=== PATIENT | male | born 1975 | race Caucasian/White ===

== ENCOUNTER 2016-09-18 10:10 | Inpatient (IN) | payer OTHER ==
[2016-09-18 11:03] VITALS: BMI 26.6
--- NOTE | 2016-09-18 12:54 | HP ---
CIWA Score - CIWA Score Nausea/Vomitin-No Nausea/No Vomiting Muscle Tremors: 4-Moderate,w/Arms Extend Anxiety: 3 Agitation: 4-Moderately Restless Paroxysmal Sweats: 3 Orientation: 0-Oriented Tacttile Disturbances: 0-None Auditory Disturbances: 0-None Visual Disturbances: 0-None Headache: 1-Very Mild CIWA-Ar Total Score: 15 Admission ROS BHS - HPI Chief Complaint: I am here to detox. Allergies/Adverse Reactions: Allergies Allergy/AdvReac Type Severity Reaction Status Date / Time No Known Allergies Allergy Verified 09/18/16 11:29 History of Present Illness: pt is a 40yr old male with a history of alcohol dependence seeking detox for treatment. Exam Limitations: No Limitations - Ebola screening Have you traveled outside of the country in the last 21 days: No Have you had contact with anyone from an Ebola affected area: No Have you been sick,other than usual withdrawal symptoms: No Do you have a fever: No - Review of Systems Constitutional: Chills, Diaphoresis, Loss of Appetite, Night Sweats EENT: reports: No Symptoms Reported Respiratory: reports: No Symptoms reported Cardiac: reports: No Symptoms Reported GI: reports: No Symptoms Reported, Poor Appetite, Poor Fluid Intake : reports: No Symptoms Reported Musculoskeletal: reports: No Symptoms Reported, Back Pain, Joint Pain Integumentary: reports: Flushing, Sweating Neuro: reports: Headache, Tingling, Tremors Endocrine: reports: Excessive Sweating, Flushing, Intolerance to Cold, Intolerance to Heat Hematology: reports: No Symptoms Reported Psychiatric: reports: No Sypmtoms Reported, Judgement Intact, Orientated x3, Agitated, Anxious Other Systems: Reviewed and Negative Patient History - Patient Medical History Hx Anemia: No Hx Asthma: No Hx Chronic Obstructive Pulmonary Disease (COPD): No Hx Cancer: No Hx Cardiac Disorders: No Hx Congestive Heart Failure: No Hx Hypertension: No Hx Hypercholesterolemia: No Hx Pacemaker: No HX Cerebrovascular Accident: No Hx Seizures: No Hx Dementia: No Hx Diabetes: No Hx Gastrointestinal Disorders: No Hx Liver Disease: No Hx Genitourinary Disorders: No Hx Sexually Transmitted Disorders: No Hx Renal Disease (ESRD): No Hx Thyroid Disease: No Hx Human Immunodeficiency Virus (HIV): No (negative) Hx Hepatitis C: No (negative) Hx Depression: Yes Hx Suicide Attempt: No Hx Bipolar Disorder: Yes Hx Schizophrenia: No Other Medical History: panic attack - Patient Surgical History Past Surgical History: No - PPD History Previous Implant?: Yes Documented Results: Negative w/o proof Implanted On Prior R Admission?: No PPD to be Administered?: Yes - Reproductive History Patient is a Female of Child Bearing Age (11 -55 yrs old): No - Smoking Cessation Smoking history: Current every day smoker Have you smoked in the past 12 months: Yes Aproximately how many cigarettes per day: 10 Hx Chewing Tobacco Use: No Initiated information on smoking cessation: Yes 'Breaking Loose' booklet given: 09/18/16 - Substance & Tx. History Hx Alcohol Use: Yes Hx Substance Use: Yes Substance Use Type: Alcohol, Cocaine Hx Substance Use Treatment: Yes - Substances Abused Alcohol Route: Oral Frequency: Daily Amount used: 1-2 PINT VODKA OR MYRA/ 6PK BEERS Age of first use: 15 Date of Last Use: 09/17/16 Cocaine Route: Smoking Frequency: Daily Amount used: 5 BAGS Age of first use: 15 Date of Last Use: 09/17/16 Family Disease History - Family Disease History Family Disease History: Diabetes: Father, [place]: Mother Admission Physical Exam S - Vital Signs Vital Signs: Vital Signs - 24 hr 09/18/16 11:00 Temperature 96.5 F L Pulse Rate 78 Respiratory 20 Rate Blood Pressure 102/76 - Physical General Appearance: Yes: Appropriately Dressed, Moderate Distress, Tremorous, Irritable, Sweating, Anxious HEENTM: Yes: Normal Voice Respiratory: Yes: Lungs Clear, Normal Breath Sounds, No Respiratory Distress Neck: Yes: No masses,lesions,Nodules Breast: Yes: Within Normal Limits Cardiology: Yes: Regular Rhythm, Regular Rate, S1, S2 Abdominal: Yes: Normal Bowel Sounds, Non Tender Genitourinary: Yes: Within Normal Limits Back: Yes: Normal Inspection Musculoskeletal: Yes: Back pain Extremities: Yes: Normal Capillary Refill, Normal Inspection, Tremors Neurological: Yes: Fully Oriented, Alert, Normal Response Integumentary: Yes: Normal Color, Diaphoresis Lymphatic: Yes: Within Normal Limits - Diagnostic (1) Alcohol dependence with uncomplicated withdrawal Current Visit: Yes Status: Chronic (2) Cocaine dependence Current Visit: Yes Status: Chronic Qualifiers: Substance use status: uncomplicated Qualified Code(s): F14.20 - Cocaine dependence, uncomplicated (3) Nicotine dependence Current Visit: Yes Status: Chronic Qualifiers: Nicotine product type: cigarettes Substance use status: uncomplicated Qualified Code(s): F17.210 - Nicotine dependence, cigarettes, uncomplicated (4) Chronic back pain Current Visit: Yes Status: Chronic Qualifiers: Back pain location: back pain in unspecified location Back pain laterality: unspecified Qualified Code(s): M54.9 - Dorsalgia, unspecified ; G89.29 - Other chronic pain Cleared for Admission [facility] - Detox or Rehab [facility] Level of Care: Medically Managed Detox Regimen/Protocol: Librium [facility] Breath Alcohol Content Breath Alcohol Content: 0 Urine Drug Screen - Results Drug Screen Negative: No Urine Drug Screen Results: LYDIA-Cocaine, OPI-Opiates
[2016-09-18] MEDS ORDERED: ACETAMINOPHEN 325 MG TABLET (FP) PO PRN (12:58)
[2016-09-18] MEDS ORDERED: guaiFENesin/D-METHORPHAN HB 10 ML UNIT-DOSE CUPS PO PRN (12:58)
[2016-09-18] MEDS ORDERED: MAG HYDROX/AL HYDROX/SIMETH 30 ML UNIT-DOSE CUP PO PRN (12:58)
[2016-09-18] MEDS ORDERED: chlordiazePOXIDE HCL 25 MG CAPSULE PO PRN (12:58)
[2016-09-18] MEDS ORDERED: MENTHOL/PHENOL 1 EACH UD MM PRN (12:58)
[2016-09-18] MEDS ORDERED: MAGNESIUM CITRATE 300 ML BOTTLE PO PRN (12:58)
[2016-09-18] MEDS ORDERED: LOPERAMIDE HCL 2 MG CAPSULE PO PRN (12:58)
[2016-09-18] MEDS ORDERED: NICOTINE POLACRILEX 4 MG GUM BUC PRN (12:58)
[2016-09-18] MEDS ORDERED: MAGNESIUM HYDROX 2400MG/30ML ORAL SUSPENSION 30 ML CUP PO PRN (12:58)
[2016-09-18] MEDS ORDERED: diphenhydrAMINE HCL 50 MG CAPSULE PO PRN (12:58)
[2016-09-18] MEDS ORDERED: hydrOXYzine PAMOATE 50 MG CAPSULE (FP) PO PRN (12:58)
[2016-09-18] MEDS ORDERED: P-EPHED 60MG/TRIPROLIDI 2.5MG TABLET PO PRN (12:58)
[2016-09-18] MEDS ORDERED: chlordiazePOXIDE HCL 25 MG CAPSULE PO ONE (14:10)
[2016-09-18] MEDS: chlordiazePOXIDE HCL 25 MG CAPSULE PO SCH ×2 (17:21→22:05)
[2016-09-18 18:43] LABS: URINE APPEARANCE CLEAR; URINE BILIRUBIN NEGATIVE (NEGATIVE); URINE BLOOD NEGATIVE (NEGATIVE); URINE COLOR DKYELLOW; URINE GLUCOSE (UA) NEGATIVE (NEGATIVE); URINE KETONE TRACE (NEGATIVE); URINE LEUK ESTERASE NEGATIVE (NEGATIVE); URINE NITRITE NEGATIVE (NEGATIVE); URINE PROTEIN 1+ (NEGATIVE); URINE UROBILINOGEN 2.0 E.U/dl E.U./dl (0.2-1.0)
[2016-09-18 19:29] LABS: URINE MUCUS FEW; URINE RBC 3 /hpf (0-3); URINE WBC 1 /hpf (3-5)
[2016-09-18 21:55] LABS: HIV 1 & 2 AB NEGATIVE; HIV 1 AGp24 NEGATIVE
[2016-09-18] MEDS: THIAMINE HCL 100 MG TABLET (FP) PO SCH (22:05)
[2016-09-18] MEDS: LIDOCAINE PATCH REMOVAL MC SCH (22:08)
[2016-09-19] MEDS: chlordiazePOXIDE HCL 25 MG CAPSULE PO SCH ×4 (05:35→22:08)
[2016-09-19] MEDS: LIDOCAINE 5% TOPICAL PATCH TP SCH (10:07)
[2016-09-19] MEDS: PRENATAL VITAMINS W/ FOLIC ACID TABLET (FP) PO SCH (10:08)
[2016-09-19] MEDS: NICOTINE 21 MG/24 HOURS TOPICAL PATCH TD SCH (10:08)
[2016-09-19 10:18] LABS: MCH 28.1 pg (25.7-33.7); MEAN CELL VOLUME 84.9 fl (80-96); MEAN PLT VOLUME 8.7 fl (7.5-11.1); PLATELET COUNT 241 K/MM3 (134-434); RDW 14.4 % (11.9-15.9); WHITE BLOOD COUNT 8.5 K/mm3 (4.0-10.0)
[2016-09-19 10:34] LABS: ALK PHOS 71 U/L (45-117); ANION GAP 5 (8-16); CALCIUM 8.6 mg/dL (8.5-10.1); CO2 29 mmol/L (21-32); COCKROFT - GAULT 113.11; CREATININE 0.9 mg/dL (0.7-1.3); GLUCOSE,RANDOM 91 mg/dL (74-106); SGOT/AST 72 U/L (15-37); SGPT/ALT 72 U/L (12-78); TOT PROT 6.9 g/dl (6.4-8.2)
--- NOTE | 2016-09-19 10:44 | CONSULT ---
[facility] Psychiatric Consult - Data Date of interview: 09/19/16 Admission source: [facility] Identifying data: First admission to [facility] for this 40 y/o male seeking detox treatment for alcohol and cocaine dependence.Patient is single,a father of one,homeless,unemployed and supported on Public Assistance. Substance Abuse History: - Smoking Cessation. Smoking history: Current every day smoker. Have you smoked in the past 12 months: Yes. Aproximately how many cigarettes per day: 10. Hx Chewing Tobacco Use: No. Initiated information on smoking cessation: Yes. 'Breaking Loose' booklet given: 09/18/16. - Substance & Tx. History. Hx Alcohol Use: Yes. Hx Substance Use: Yes. Substance Use Type : Alcohol, Cocaine. Hx Substance Use Treatment: Yes. - Substances Abused. Alcohol. Route: Oral. Frequency: Daily. Amount used: 1-2 PINT VODKA OR MYRA / 6PK BEERS. Age of first use: 15. Date of Last Use: 09/17/16. Cocaine. Route: Smoking. Frequency: Daily. Amount used: 5 BAGS. Age of first use: 15. Date of Last Use: 09/17/16. Confirmed by patient. Medical History: Complaint of lower back pain (discal issues at L4-L5 level,as per self-report). Psychiatric History: No reported history of psychiatric hospitalizations (only CPEP visits at [facility]Diagnosed with Bipolar Disorder and maintained on a regimen of paxil 20 mg/day + wellbutrin XL 300 mg/day + ambien 5 mg/hs.Patient indicates that he last took his medications four days ago.Mr Echeverria reports that he gets his outpatient psychiatric services at [facility] OPD clinic.No history of suicide attempts. Physical/Sexual Abuse/Trauma History: Patient denies. Additional Comment: Urine Drug Screen Results: LYDIA-Cocaine, OPI-Opiates.Noted. Mental Status Exam - Mental Status Exam Alert and Oriented to: Time, Place, Person Cognitive Function: Good Patient Appearance: Well Groomed Mood: Hopeful, Euthymic Affect: Appropriate, Normal Range Patient Behavior: Fatigued, Appropriate, Cooperative Speech Pattern: Clear (bilingual) Voice Loudness: Normal Thought Process: Goal Oriented Thought Disorder: Not Present Hallucinations: Denies Suicidal Ideation: Denies Homicidal Ideation: Denies Insight/Judgement: Poor Sleep: Poorly, Difficulty falling asleep Appetite: Good Muscle strength/Tone: Normal Gait/Station: Normal Psychiatric Findings - Problem List ([place] 1, 2,3) (1) Alcohol dependence with uncomplicated withdrawal Current Visit: Yes Status: Acute (2) Cocaine dependence Current Visit: Yes Status: Acute Qualifiers: Substance use status: uncomplicated Qualified Code(s): F14.20 - Cocaine dependence, uncomplicated (3) Nicotine dependence Current Visit: Yes Status: Acute Qualifiers: Nicotine product type: cigarettes Substance use status: uncomplicated Qualified Code(s): F17.210 - Nicotine dependence, cigarettes, uncomplicated (4) Substance induced mood disorder Current Visit: Yes Status: Acute (5) Depressive disorder Current Visit: Yes Status: Chronic (6) Chronic back pain Current Visit: Yes Status: Chronic Qualifiers: Back pain location: back pain in unspecified location Back pain laterality: unspecified Qualified Code(s): M54.9 - Dorsalgia, unspecified ; G89.29 - Other chronic pain (7) Insomnia Current Visit: Yes Status: Acute - Initial Treatment Plan Initial Treatment Plan: Psychoeducation.Detoxification.Medications ordered as per list from Psychiatric History section (refer for details).Side effects/ benefits of wellbutrin,ambien and paxil are discussed with the patient.Eager to resume medications.He agrees with this careplan.Noted discrepancy between pharmacy claims of 09/11/16 @ [facility] [employer] (scripts for risperdal and lexapro) .Patient refuted these claims." I stopped taking those medications;they do nothing for me.I now take wellbutrin,ambien and paxil." Will monitor progress.
--- NOTE | 2016-09-19 11:59 | EKG ---
Test Reason : Blood Pressure : / mmHG Vent. Rate : 084 BPM Atrial Rate : 084 BPM P-R Int : 130 ms QRS Dur : 082 ms QT Int : 376 ms P-R-T Axes : 077 065 035 degrees QTc Int : 444 ms NORMAL SINUS RHYTHM NORMAL ECG NO PREVIOUS ECGS AVAILABLE Confirmed by JULIA RESTREPO, BRONWYN ([id number]) on 09/19/2016 11:59:19 AM Referred By: Confirmed By:BRONWYN DUMONT MD
--- NOTE | 2016-09-19 12:10 | PN ---
S CIWA - CIWA Score Nausea/Vomitin-No Nausea/No Vomiting Muscle Tremors: 3 Anxiety: 4-Mod. Anxious/Guarded Agitation: 3 Paroxysmal Sweats: 3 Orientation: 0-Oriented Tacttile Disturbances: 0-None Auditory Disturbances: 0-None Visual Disturbances: 0-None Headache: 0-None Present CIWA-Ar Total Score: 13 BHS Progress Note (SOAP) Subjective: Anxiety,tremors,sweating,interrupted sleep,restless. Objective: 09/19/16 12:13 Vital Signs - 8 hr 09/19/16 09/19/16 06:32 09:24 Temperature 97.3 F L 96.4 F L Pulse Rate 74 84 Respiratory 16 18 Rate Blood Pressure 96/70 105/70 Laboratory Tests 09/18/16 09/18/16 09/19/16 10:00 14:00 06:00 WBC 8.5 RBC 4.69 Hgb 13.2 Hct 39.8 MCV 84.9 MCHC 33.0 RDW 14.4 Plt Count 241 MPV 8.7 Sodium Potassium Chloride Carbon Dioxide Anion Gap BUN Creatinine Creat Clearance w eGFR Random Glucose Calcium Total Bilirubin AST ALT Alkaline Phosphatase Total Protein Albumin Urine Color Dkyellow Urine Appearance Clear Urine pH 5.0 Ur Specific [place] 1.025 Urine Protein 1+ H Urine Glucose (UA) Negative Urine Ketones Trace H Urine Blood Negative Urine Nitrite Negative Urine Bilirubin Negative Urine Urobilinogen 2.0 e.u/dl Ur Leukocyte Esterase Negative Urine RBC 3 Urine WBC 1 Urine Mucus Few HIV 1&2 Antibody Screen Negative HIV P24 Antigen Negative 09/19/16 06:00 WBC RBC Hgb Hct MCV MCHC RDW Plt Count MPV Sodium 136 Potassium 4.1 Chloride 102 Carbon Dioxide 29 Anion Gap 5 L BUN 25 H Creatinine 0.9 Creat Clearance w eGFR > 60 Random Glucose 91 Calcium 8.6 Total Bilirubin 1.0 AST 72 H ALT 72 Alkaline Phosphatase 71 Total Protein 6.9 Albumin 4.0 Urine Color Urine Appearance Urine pH Ur Specific [place] Urine Protein Urine Glucose (UA) Urine Ketones Urine Blood Urine Nitrite Urine Bilirubin Urine Urobilinogen Ur Leukocyte Esterase Urine RBC Urine WBC Urine Mucus HIV 1&2 Antibody Screen HIV P24 Antigen labs noted Assessment: 09/19/16 12:13 Withdrawal sx. Plan: Continue detox
[2016-09-19] MEDS: PARoxetine HCL 20 MG TABLET (FP) PO SCH (14:08)
[2016-09-19] MEDS: ZOLPIDEM TARTRATE 5 MG TABLET PO PRN (22:08)
[2016-09-19] MEDS: THIAMINE HCL 100 MG TABLET (FP) PO SCH (22:08)
[2016-09-19] MEDS: LIDOCAINE PATCH REMOVAL MC SCH (22:09)
[2016-09-20] MEDS: chlordiazePOXIDE HCL 25 MG CAPSULE PO SCH ×2 (05:49→10:17)
[2016-09-20] MEDS: LIDOCAINE 5% TOPICAL PATCH TP SCH (10:17)
[2016-09-20] MEDS: PARoxetine HCL 20 MG TABLET (FP) PO SCH (10:18)
[2016-09-20] MEDS: PRENATAL VITAMINS W/ FOLIC ACID TABLET (FP) PO SCH (10:21)
[2016-09-20] MEDS: NICOTINE 21 MG/24 HOURS TOPICAL PATCH TD SCH (10:22)
--- NOTE | 2016-09-20 10:32 | PN ---
S CIWA - CIWA Score Nausea/Vomitin-No Nausea/No Vomiting Muscle Tremors: 4-Moderate,w/Arms Extend Anxiety: 3 Agitation: 3 Paroxysmal Sweats: 3 Orientation: 0-Oriented Tacttile Disturbances: 0-None Auditory Disturbances: 0-None Visual Disturbances: 0-None Headache: 0-None Present CIWA-Ar Total Score: 13 BHS Progress Note (SOAP) Subjective: Anxiety,tremors,sweating,interrupted sleep,restless. Objective: 09/20/16 10:31 Vital Signs - 8 hr 09/20/16 09/20/16 09/20/16 03:53 06:24 09:12 Temperature 97.6 F 97.0 F L Pulse Rate 81 84 Respiratory 18 18 18 Rate Blood Pressure 106/73 104/72 Laboratory Tests 09/18/16 09/18/16 09/19/16 10:00 14:00 06:00 WBC 8.5 RBC 4.69 Hgb 13.2 Hct 39.8 MCV 84.9 MCHC 33.0 RDW 14.4 Plt Count 241 MPV 8.7 Sodium Potassium Chloride Carbon Dioxide Anion Gap BUN Creatinine Creat Clearance w eGFR Random Glucose Calcium Total Bilirubin AST ALT Alkaline Phosphatase Total Protein Albumin Urine Color Dkyellow Urine Appearance Clear Urine pH 5.0 Ur Specific [place] 1.025 Urine Protein 1+ H Urine Glucose (UA) Negative Urine Ketones Trace H Urine Blood Negative Urine Nitrite Negative Urine Bilirubin Negative Urine Urobilinogen 2.0 e.u/dl Ur Leukocyte Esterase Negative Urine RBC 3 Urine WBC 1 Urine Mucus Few RPR Titer HIV 1&2 Antibody Screen Negative HIV P24 Antigen Negative 09/19/16 09/19/16 06:00 06:00 WBC RBC Hgb Hct MCV MCHC RDW Plt Count MPV Sodium 136 Potassium 4.1 Chloride 102 Carbon Dioxide 29 Anion Gap 5 L BUN 25 H Creatinine 0.9 Creat Clearance w eGFR > 60 Random Glucose 91 Calcium 8.6 Total Bilirubin 1.0 AST 72 H ALT 72 Alkaline Phosphatase 71 Total Protein 6.9 Albumin 4.0 Urine Color Urine Appearance Urine pH Ur Specific [place] Urine Protein Urine Glucose (UA) Urine Ketones Urine Blood Urine Nitrite Urine Bilirubin Urine Urobilinogen Ur Leukocyte Esterase Urine RBC Urine WBC Urine Mucus RPR Titer Nonreactive HIV 1&2 Antibody Screen HIV P24 Antigen labs noted Assessment: 09/20/16 10:31 Withdrawal sx. Plan: Continue detox
[2016-09-20] MEDS: chlordiazePOXIDE 5 MG CAPSULE PO SCH ×2 (17:39→22:12)
[2016-09-20] MEDS: ZOLPIDEM TARTRATE 5 MG TABLET PO PRN (22:12)
[2016-09-20] MEDS: THIAMINE HCL 100 MG TABLET (FP) PO SCH (22:12)
[2016-09-20] MEDS: LIDOCAINE PATCH REMOVAL MC SCH (22:14)
[2016-09-21] MEDS: chlordiazePOXIDE 5 MG CAPSULE PO SCH ×2 (05:25→10:06)
[2016-09-21] MEDS: PARoxetine HCL 20 MG TABLET (FP) PO SCH (10:05)
[2016-09-21] MEDS: LIDOCAINE 5% TOPICAL PATCH TP SCH (10:05)
[2016-09-21] MEDS: PRENATAL VITAMINS W/ FOLIC ACID TABLET (FP) PO SCH (10:06)
[2016-09-21] MEDS: NICOTINE 21 MG/24 HOURS TOPICAL PATCH TD SCH (10:06)
--- NOTE | 2016-09-21 11:56 | PN ---
BHS Progress Note (SOAP) Subjective: Diarrhea, Sweating, Tremors. Objective: PT. A & O X 3. 09/21/16 11:55 Laboratory Tests 09/18/16 09/18/16 09/19/16 10:00 14:00 06:00 WBC 8.5 RBC 4.69 Hgb 13.2 Hct 39.8 MCV 84.9 MCHC 33.0 RDW 14.4 Plt Count 241 MPV 8.7 Sodium Potassium Chloride Carbon Dioxide Anion Gap BUN Creatinine Creat Clearance w eGFR Random Glucose Calcium Total Bilirubin AST ALT Alkaline Phosphatase Total Protein Albumin Urine Color Dkyellow Urine Appearance Clear Urine pH 5.0 Ur Specific [place] 1.025 Urine Protein 1+ H Urine Glucose (UA) Negative Urine Ketones Trace H Urine Blood Negative Urine Nitrite Negative Urine Bilirubin Negative Urine Urobilinogen 2.0 e.u/dl Ur Leukocyte Esterase Negative Urine RBC 3 Urine WBC 1 Urine Mucus Few RPR Titer HIV 1&2 Antibody Screen Negative HIV P24 Antigen Negative 09/19/16 09/19/16 06:00 06:00 WBC RBC Hgb Hct MCV MCHC RDW Plt Count MPV Sodium 136 Potassium 4.1 Chloride 102 Carbon Dioxide 29 Anion Gap 5 L BUN 25 H Creatinine 0.9 Creat Clearance w eGFR > 60 Random Glucose 91 Calcium 8.6 Total Bilirubin 1.0 AST 72 H ALT 72 Alkaline Phosphatase 71 Total Protein 6.9 Albumin 4.0 Urine Color Urine Appearance Urine pH Ur Specific [place] Urine Protein Urine Glucose (UA) Urine Ketones Urine Blood Urine Nitrite Urine Bilirubin Urine Urobilinogen Ur Leukocyte Esterase Urine RBC Urine WBC Urine Mucus RPR Titer Nonreactive HIV 1&2 Antibody Screen HIV P24 Antigen LABS NOTED. Assessment: 09/21/16 11:56 WITHDRAWAL SYMPTOMS. Plan: CONTINUE DETOX.
[2016-09-21] MEDS: chlordiazePOXIDE HCL 10 MG CAPSULE PO SCH ×2 (17:20→22:18)
[2016-09-21] MEDS: THIAMINE HCL 100 MG TABLET (FP) PO SCH (22:18)
[2016-09-21] MEDS: ZOLPIDEM TARTRATE 5 MG TABLET PO PRN (22:18)
[2016-09-21] MEDS: LIDOCAINE PATCH REMOVAL MC SCH (22:19)
[2016-09-22] MEDS: chlordiazePOXIDE HCL 10 MG CAPSULE PO SCH (05:31)
[2016-09-22 06:07] VITALS: BP 94/72; PULSE 68; TEMP 97.5
--- NOTE | 2016-09-22 14:01 | DS ---
[facility] Detox Discharge Summary Admission Date: 09/18/16 Discharge Date: 09/22/16 - History Present History: Alcohol Dependence, Cocaine Dependence Additional Comments: ADVISED PATIENT TO FOLLOW-UP WITH [employer] AFTER DISCHARGE FROM DETOX FOR GENERAL MEDICAL ASSESSMENT. Pertinent Past History: Depression, Bipolar Disorder. - Physical Exam Results Vital Signs: Vital Signs Temperature 97.5 F L 09/22/16 06:07 Pulse Rate 68 09/22/16 06:07 Respiratory Rate 16 09/22/16 06:07 Blood Pressure 94/72 09/22/16 06:07 O2 Sat by Pulse Oximetry (%) Pertinent Admission Physical Exam Findings: WITHDRAWAL SYMPTOMS. Laboratory Tests 09/18/16 09/18/16 09/19/16 10:00 14:00 06:00 WBC 8.5 RBC 4.69 Hgb 13.2 Hct 39.8 MCV 84.9 MCHC 33.0 RDW 14.4 Plt Count 241 MPV 8.7 Sodium Potassium Chloride Carbon Dioxide Anion Gap BUN Creatinine Creat Clearance w eGFR Random Glucose Calcium Total Bilirubin AST ALT Alkaline Phosphatase Total Protein Albumin Urine Color Dkyellow Urine Appearance Clear Urine pH 5.0 Ur Specific [place] 1.025 Urine Protein 1+ H Urine Glucose (UA) Negative Urine Ketones Trace H Urine Blood Negative Urine Nitrite Negative Urine Bilirubin Negative Urine Urobilinogen 2.0 e.u/dl Ur Leukocyte Esterase Negative Urine RBC 3 Urine WBC 1 Urine Mucus Few RPR Titer HIV 1&2 Antibody Screen Negative HIV P24 Antigen Negative 09/19/16 09/19/16 06:00 06:00 WBC RBC Hgb Hct MCV MCHC RDW Plt Count MPV Sodium 136 Potassium 4.1 Chloride 102 Carbon Dioxide 29 Anion Gap 5 L BUN 25 H Creatinine 0.9 Creat Clearance w eGFR > 60 Random Glucose 91 Calcium 8.6 Total Bilirubin 1.0 AST 72 H ALT 72 Alkaline Phosphatase 71 Total Protein 6.9 Albumin 4.0 Urine Color Urine Appearance Urine pH Ur Specific [place] Urine Protein Urine Glucose (UA) Urine Ketones Urine Blood Urine Nitrite Urine Bilirubin Urine Urobilinogen Ur Leukocyte Esterase Urine RBC Urine WBC Urine Mucus RPR Titer Nonreactive HIV 1&2 Antibody Screen HIV P24 Antigen LABS NOTED. - Treatment Hospital Course: Detox Protocol Followed, Detoxed Safely, Responded well, Discharged Condition Good Patient has Accepted a Rehab Referral to: [facility] / AA OUTPATIENT PROGRAMS RECOMMENDED. - Medication Discharge Medications: Ambulatory Orders Bupropion HCl [Wellbutrin Xl -] 300 mg PO DAILY 09/18/16 Paroxetine HCl [Paxil -] 20 mg PO DAILY 09/18/16 - Diagnosis (1) Alcohol dependence with uncomplicated withdrawal Status: Acute (2) Cocaine dependence Status: Acute Qualifiers: Substance use status: uncomplicated Qualified Code(s): F14.20 - Cocaine dependence, uncomplicated (3) Insomnia Status: Chronic Qualifiers: Insomnia type: unspecified Qualified Code(s): G47.00 - Insomnia, unspecified (4) Nicotine dependence Status: Chronic Qualifiers: Nicotine product type: cigarettes Substance use status: uncomplicated Qualified Code(s): F17.210 - Nicotine dependence, cigarettes, uncomplicated (5) Substance induced mood disorder Status: Acute (6) Chronic back pain Status: Chronic Qualifiers: Back pain location: back pain in unspecified location Back pain laterality: unspecified Qualified Code(s): M54.9 - Dorsalgia, unspecified ; G89.29 - Other chronic pain (7) Depressive disorder Status: Chronic - AMA Did Patient Leave Against Medical Advice: No
== END 2016-09-22 08:58 | disposition home or self-care (01) | DRG 774 ==
LOC: YASAS 10:10 → Y3N 13:28
PROVIDERS: ADMIT Internal Medicine; ATTEND Internal Medicine
PROC: HZ2ZZZZ Detoxification Services for Substance Abuse Treatment (ICD-10-PCS; principal; 2016-09-22)
DX: F10.230 Alcohol dependence with withdrawal, uncomplicated (principal); F14.20 Cocaine dependence, uncomplicated; F17.210 Nicotine dependence, cigarettes, uncomplicated; F19.24 Other psychoactive substance dependence with psychoactive substance-induced mood disorder; F39 Unspecified mood [affective] disorder; G47.00 Insomnia, unspecified; M54.89 Other dorsalgia; G89.29 Other chronic pain; Z59.0 Homelessness
CPT/HCPCS: 36415; 80053; 81003; 81015; 85027; 86593; 87389; 93005; 93010